=== PATIENT | male | born 1965 | race Native Hawaiian/Other Pacific Islander ===

== ENCOUNTER 2018-03-30 18:59 | Emergency (ER) | payer OTHER ==
[2018-03-30] MEDS ORDERED: Tdap Vaccine 0.5 ml Vial (10-64 yrs) IM ONE ×2 (20:24→21:19)
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
[2018-03-30] MEDS ORDERED: Hydrogen Peroxide 3% Soln (480ml) TP ONE (21:18)
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
[2018-03-30] MEDS ORDERED: Lidocaine 1% w Epi 1:100,000 Inj ONE (21:45)
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
[2018-03-30 22:29] LABS: BASO % 0.4 % (0.0-2.0); EOS # 0.1 K/uL (0.0-0.7); EOS % 0.5 % (0.0-4.0); HEMOGLOBIN 13.8 g/dL (12.0-18.0); LYMPH # 1.9 K/uL (1.0-4.3); LYMPH % 17.8 % (20.0-40.0); MEAN CELL VOLUME 84.1 fl (80.0-94.0); MEAN CORPUSCULAR HEMOGLOBIN 27.2 pg (27.0-31.0); MEAN CORPUSCULAR HGB CONC 32.3 g/dL (33.0-37.0); MEAN PLATELET VOLUME 8.7 fl (7.2-11.7); MONO # 0.5 K/uL (0.0-0.8); MONO % 4.6 % (0.0-10.0); NEUT % 76.7 % (50.0-75.0); NRBC % 0.1 % (0.0-0.0); RBC 5.09 Mil/uL (4.40-5.90); RED CELL DISTRIBUTION WIDTH 16.3 % (11.5-14.5); WHITE BLOOD COUNT 10.5 K/uL (4.8-10.8)
[2018-03-30 22:34] LABS: ALB/GLOB RATIO 1.2 (1.0-2.1); ALBUMIN 4.2 g/dL (3.5-5.0); CALCIUM 9.1 mg/dL (8.4-10.2); GFR AFRICAN-AMERICAN > 60; GFR NON-AFRICAN AMERICAN > 60
[2018-03-30 22:36] LABS: PROTHROMBIN TIME 9.4 Seconds (9.8-13.1)
[2018-03-30 22:37] LABS: INR 0.9 (0.9-1.2); PARTIAL THROMBOPLASTIN TIME 36.4 Seconds (25.6-37.1)
[2018-03-30] MEDS ORDERED: ceFAZolin 1 GM in Sodium Chloride 0.9% 100 ML IV STA (22:45)
[2018-03-30 22:49] LABS: ALT/SGPT 66 U/L (21-72); AST/SGOT 57 U/L (17-59); BLOOD UREA NITROGEN 15 mg/dl (9-20)
[2018-03-30 22:55] VITALS: BP 120/78; PULSE 84; TEMP 98.2
[2018-03-31] VITALS: RESP 18; O2SAT 97
--- NOTE | 2018-03-31 09:08 | RAD ---
PROCEDURE: Right Hand Radiographs. HISTORY: fall COMPARISON: None. FINDINGS: BONES: No acute fracture or destructive bony lesion identified. JOINTS: No subluxation or dislocation appreciable. SOFT TISSUES: Normal. OTHER FINDINGS: None. IMPRESSION: Unremarkable Right hand radiographs.
== END 2018-03-30 23:45 | disposition short-term general hospital (02) ==
LOC: H.ER 18:59
DX: S02.609A Fracture of mandible, unspecified, initial encounter for closed fracture (principal); M25.512 Pain in left shoulder; S01.81XA Laceration without foreign body of other part of head, initial encounter; S60.519A Abrasion of unspecified hand, initial encounter; V18.0XXA Pedal cycle driver injured in noncollision transport accident in nontraffic accident, initial encounter; Y93.55 Activity, bike riding
CPT/HCPCS: 12001; 70450; 70486; 73000; 73030; 73130; 80053; 85025; 85610; 85730; 90471; 90715; 96374; 96375; 96376; 99283; J0690; J2270

== ENCOUNTER 2018-05-27 19:33 | Observation (INO) | payer OTHER ==
[2018-05-27] MEDS ORDERED: Dexamethasone 10 MG in Sodium Chloride 0.9% 50 ML IV ONE (19:58)
[2018-05-27] MEDS ORDERED: Clindamycin 600mg/50ml D5W 600 MG/50 ML VIAL IVPB STA (19:58)
[2018-05-27] MEDS ORDERED: Iohexol 300 100 ML IJ ONE (20:06)
[2018-05-27] MEDS ORDERED: Sodium Chloride 0.9% 50 ML IV ONE (20:06)
[2018-05-27] MEDS ORDERED: Sodium Chloride 0.9% 1,000 ML IV STA (20:07)
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
[2018-05-27 20:53] LABS: BASO # 0.1 K/uL (0.0-0.2); BASO % 0.4 % (0.0-2.0); EOS # 0.1 K/uL (0.0-0.7); EOS % 0.6 % (0.0-4.0); HEMOGLOBIN 13.6 g/dL (12.0-18.0); LYMPH # 2.6 K/uL (1.0-4.3); LYMPH % 18.6 % (20.0-40.0); MEAN CORPUSCULAR HEMOGLOBIN 26.5 pg (27.0-31.0); MEAN CORPUSCULAR HGB CONC 32.3 g/dL (33.0-37.0); MONO # 0.7 K/uL (0.0-0.8); MONO % 5.3 % (0.0-10.0); NEUT # 10.4 K/uL (1.8-7.0); NEUT % 75.1 % (50.0-75.0); RBC 5.15 Mil/uL (4.40-5.90); WHITE BLOOD COUNT 13.9 K/uL (4.8-10.8)
[2018-05-27 21:06] LABS: ALB/GLOB RATIO 1.2 (1.0-2.1); ALBUMIN 4.2 g/dL (3.5-5.0); ALT/SGPT 41 U/L (21-72); AST/SGOT 32 U/L (17-59); BLOOD UREA NITROGEN 16 mg/dl (9-20); CALCIUM 9.2 mg/dL (8.4-10.2); GFR NON-AFRICAN AMERICAN > 60
[2018-05-27 21:08] LABS: VENOUS BLOOD GAS BASE EXCESS 2.9 mmol/L (0.0-2.0); VENOUS BLOOD GAS PCO2 49 mmHg (40-60); VENOUS BLOOD GAS PO2 28 mm/Hg (30-55); VENOUS BLOOD PH 7.38 (7.32-7.43)
[2018-05-27] MEDS ORDERED: Morphine 4 MG/ML VIAL ONE (21:50)
[2018-05-27] MEDS ORDERED: Benzocaine/Butamben/Tetracai 14-2-2% TOP Spray TOP ONE (21:54)
[2018-05-27] MEDS ORDERED: Lidocaine 1% w Epi 1:100,000 Inj ONE (22:11)
[2018-05-27] MEDS ORDERED: Lidocaine/Epi 1% 1:100000 20 ML IJ ONE (23:56)
[2018-05-28] MEDS ORDERED: Morphine 4 MG/ML VIAL IVP PRN (01:11)
[2018-05-28] MEDS ORDERED: Morphine 4 MG/ML VIAL ONE (01:53)
[2018-05-28] MEDS ORDERED: Clindamycin in NS 300 MG/50 ML BAG IVPB SCH (04:00)
[2018-05-28 06:36] LABS: HEMOGLOBIN 13.9 g/dL (12.0-18.0); MEAN CELL VOLUME 81.4 fl (80.0-94.0); MEAN CORPUSCULAR HEMOGLOBIN 26.3 pg (27.0-31.0); MEAN CORPUSCULAR HGB CONC 32.4 g/dL (33.0-37.0); RBC 5.29 Mil/uL (4.40-5.90); RED CELL DISTRIBUTION WIDTH 16.9 % (11.5-14.5); WHITE BLOOD COUNT 14.9 K/uL (4.8-10.8)
[2018-05-28 07:00] LABS: ALT/SGPT 34 U/L (21-72); AST/SGOT 25 U/L (17-59); BLOOD UREA NITROGEN 13 mg/dl (9-20); CALCIUM 9.1 mg/dL (8.4-10.2); GFR NON-AFRICAN AMERICAN > 60
[2018-05-28 07:02] LABS: ALBUMIN 4.1 g/dL (3.5-5.0)
[2018-05-28 07:34] LABS: ALB/GLOB RATIO 1.2 (1.0-2.1)
[2018-05-28] MEDS: Clindamycin in NS 300 MG/50 ML BAG IVPB SCH ×3 (08:46→20:55)
--- NOTE | 2018-05-28 09:37 | CT ---
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 TECHNIQUE: CT of the neck was performed following intravenous contrast administration from the skullbase to the aortic arch. Coronal and sagittal reformats generated. Intravenous contrast dose: Omnipaque 300, 80 cc Radiation dose: DLP 313.06 mGy-cm This CT exam was performed using one or more of the following dose reduction techniques: Automated exposure control, adjustment of the mA and/or kV according to patient size, and/or use of iterative reconstruction technique. FINDINGS: NASOPHARYNX: Majority nasopharynx unremarkable, however, the posterior soft palate appears edematous with thickening of the uvula at the inferior margins of the nasopharynx and upper portion of the oropharynx. Further, the tonsillar pillars are moderately enlarged with limited edema seen at the right side compatible with likely tonsillitis and pharyngitis. However, mild phlegmon is suspected at the right palatine tonsil. No fluid collections appreciate that would suggest definite abscess at this time. An early abscess is not completely excluded. The mid oral cavity is unremarkable with the anterior oral cavity obscured by artifact related to dental hardware. SUPRAHYOID NECK: The oropharynx is evaluated above with nasopharynx. The remainder the suprahyoid neck is otherwise unremarkable including the hypopharynx. INFRAHYOID NECK: Unremarkable larynx, hypopharynx, and supraglottic space. Vocal cords intact. GLANDS: Parotid and submandibular glands unremarkable. Normal size thyroid gland, without nodule. LYMPH NODES: Upper limits normal size jugular digastric lymph nodes. No significant infrahyoid lymphadenopathy. CERVICAL SPINE: No fracture or focal lesion. VASCULAR STRUCTURES: Conjoint origin left common carotid artery with brachiocephalic artery. OTHER FINDINGS: Nonacute, upper right mandibular ramus comminuted fracture with limited posterolateral displacement incidentally noted. Further, fibrotic changes appear somewhat nodule the left pulmonary apex with follow-up chest CT recommended electively if not already evaluated. Small gas collection is seen lateral to the esophagus, immediately proximal to the level of the thoracic inlet. IMPRESSION: Larger of the bilateral palatine tonsils is appreciated with prominent edema affecting the posterior margins of the soft palate and extending into the right palatine tonsil. No peripheral edema is associated with edematous findings. Phlegmon is felt to be present at the right palatine tonsil instead rather than definitive abscess, though an early abscess is not completely exclude. Borderline suprahyoid lymphadenopathy bilaterally. In a nonacute setting, the differential diagnosis would be neoplasm. Clinically correlate. Small gas collection is seen lateral to the esophagus above the thoracic inlet potentially reflecting a diverticulum or duplication cyst. Nonacute, comminuted right mandibular fracture. Please see separate facial CT 03/30/2018. Nodular left apical scarring incidentally noted which is indeterminate in appearance for follow-up CT of the chest is recommended if not already evaluated.
--- NOTE | 2018-05-28 11:26 | OP ---
PROCEDURE DATE: 05/27/2018 PREOPERATIVE DIAGNOSIS: Right tonsillar abscess. POSTOPERATIVE DIAGNOSIS: Right tonsillar abscess. PROCEDURE: Incision and drainage of right tonsillar abscess. SIGNIFICANT FINDINGS: Right tonsillar abscess. DESCRIPTION OF PROCEDURE: The patient was placed in seated position. The right side tonsillar area was injected with lidocaine with epinephrine. An incision was made in the area of the soft palate between the tonsil and the uvula using a #11 blade, clamped and dissection was done and pus was noted to be coming out. Clamp was used to break up any possible loculation. Bleeding was controlled with time. The patient tolerated the procedure well. Octavio Carpenter MD
[2018-05-28] MEDS ORDERED: Pneumococcal 23-Valent Vaccine IM ONE (11:47)
[2018-05-29] MEDS: Clindamycin in NS 300 MG/50 ML BAG IVPB SCH ×2 (01:40→09:01)
[2018-05-29 07:18] LABS: BASO % 0.2 % (0.0-2.0); EOS % 0.4 % (0.0-4.0); HEMOGLOBIN 13.4 g/dL (12.0-18.0); LYMPH # 2.2 K/uL (1.0-4.3); LYMPH % 20.3 % (20.0-40.0); MEAN CELL VOLUME 82.9 fl (80.0-94.0); MEAN CORPUSCULAR HEMOGLOBIN 26.1 pg (27.0-31.0); MEAN CORPUSCULAR HGB CONC 31.5 g/dL (33.0-37.0); MEAN PLATELET VOLUME 8.3 fl (7.2-11.7); MONO # 0.6 K/uL (0.0-0.8); MONO % 5.3 % (0.0-10.0); NEUT # 7.9 K/uL (1.8-7.0); NEUT % 73.8 % (50.0-75.0); RBC 5.12 Mil/uL (4.40-5.90); RED CELL DISTRIBUTION WIDTH 17.1 % (11.5-14.5); WHITE BLOOD COUNT 10.7 K/uL (4.8-10.8)
[2018-05-29 07:32] LABS: ALB/GLOB RATIO 1.1 (1.0-2.1); ALBUMIN 3.7 g/dL (3.5-5.0); ALT/SGPT 32 U/L (21-72); AST/SGOT 25 U/L (17-59); BLOOD UREA NITROGEN 14 mg/dl (9-20); CALCIUM 8.5 mg/dL (8.4-10.2); GFR NON-AFRICAN AMERICAN > 60
[2018-05-29 08:24] VITALS: BP 99/64; PULSE 80; RESP 18; TEMP 98; O2SAT 99
[2018-05-29 16:33] LABS: % CD4 (T HELPER CELL) 14 Percent (30-61); % CD8 (SUPPRESSOR T CELL) 26 Percent (12-42); ABSOLUTE CD4 CELLS 148 Cells/mcL (490-1740); ABSOLUTE CD8 CELLS 275 Cells/mcL (180-1170); ABSOLUTE LYMPHOCYTES 1075 Cells/mcL (850-3900); HELPER/SUPPRESSOR RATIO 0.54 Ratio (0.86-5.00)
--- NOTE | 2018-05-31 09:52 | CP.PCM.DIS ---
Provider - Provider Date of Admission: 05/27/18 23:49 Attending physician: Felicia Garcia MD Time Spent in preparation of Discharge (in minutes): 15 Diagnosis - Discharge Diagnosis (1) DVT prophylaxis Status: Acute (2) HIV (human immunodeficiency virus infection) Status: Acute (3) Peritonsillar abscess Status: Acute Hospital Course - Lab Results Lab Results: Micro Results 05/27/18 20:35 Throat Group A Strep Throat Culture - Final NO BETA STREP GROUP A ISOLATED. 05/27/18 20:26 Blood Blood Culture - Preliminary NO GROWTH AFTER 24 HOURS 05/27/18 08:30 Blood Blood Culture - Preliminary NO GROWTH AFTER 24 HOURS Most Recent Lab Values WBC 10.7 K/uL (4.8-10.8) 05/29/18 05:20 RBC 5.12 Mil/uL (4.40-5.90) 05/29/18 05:20 Hgb 13.4 g/dL (12.0-18.0) 05/29/18 05:20 Hct 42.4 % (35.0-51.0) 05/29/18 05:20 MCV 82.9 fl (80.0-94.0) 05/29/18 05:20 MCH 26.1 pg (27.0-31.0) L 05/29/18 05:20 MCHC 31.5 g/dL (33.0-37.0) L 05/29/18 05:20 RDW 17.1 % (11.5-14.5) H 05/29/18 05:20 Plt Count 212 K/uL (130-400) 05/29/18 05:20 MPV 8.3 fl (7.2-11.7) 05/29/18 05:20 Neut % (Auto) 73.8 % (50.0-75.0) 05/29/18 05:20 Lymph % (Auto) 20.3 % (20.0-40.0) 05/29/18 05:20 [place] % (Auto) 5.3 % (0.0-10.0) 05/29/18 05:20 Eos % (Auto) 0.4 % (0.0-4.0) 05/29/18 05:20 Baso % (Auto) 0.2 % (0.0-2.0) 05/29/18 05:20 Neut # (Auto) 7.9 K/uL (1.8-7.0) H 05/29/18 05:20 Lymph # (Auto) 2.2 K/uL (1.0-4.3) 05/29/18 05:20 [place] # (Auto) 0.6 K/uL (0.0-0.8) 05/29/18 05:20 Eos # (Auto) 0.0 K/uL (0.0-0.7) 05/29/18 05:20 Baso # (Auto) 0.0 K/uL (0.0-0.2) 05/29/18 05:20 pO2 28 mm/Hg (30-55) L 05/27/18 19:59 VBG pH 7.38 (7.32-7.43) 05/27/18 19:59 VBG pCO2 49 mmHg (40-60) 05/27/18 19:59 VBG HCO3 25.9 mmol/L 05/27/18 19:59 VBG Total CO2 30.5 mmol/L (22-28) H 05/27/18 19:59 VBG O2 Sat (Calc) 55.8 % (40-65) 05/27/18 19:59 VBG Base Excess 2.9 mmol/L (0.0-2.0) H 05/27/18 19:59 VBG Potassium 4.0 mmol/L (3.6-5.2) 05/27/18 19:59 Sodium 137.0 mmol/L (132-148) 05/27/18 19:59 Chloride 103.0 mmol/L (98-107) 05/27/18 19:59 Glucose 112 mg/dL (75-110) H 05/27/18 19:59 Lactate 1.0 mmol/L (0.7-2.1) 05/27/18 19:59 FiO2 21.0 % 05/27/18 19:59 Sodium 142 mmol/l (132-148) 05/29/18 05:20 Potassium 4.3 MMOL/L (3.6-5.0) 05/29/18 05:20 Chloride 108 mmol/L (98-107) H 05/29/18 05:20 Carbon Dioxide 23 mmol/L (22-30) 05/29/18 05:20 Anion Gap 15 (10-20) 05/29/18 05:20 BUN 14 mg/dl (9-20) 05/29/18 05:20 Creatinine 0.8 mg/dl (0.8-1.5) 05/29/18 05:20 Est GFR ( Amer) > 60 05/29/18 05:20 Est GFR (Non-Af Amer) > 60 05/29/18 05:20 Random Glucose 111 mg/dL (75-110) H 05/29/18 05:20 Calcium 8.5 mg/dL (8.4-10.2) 05/29/18 05:20 Total Bilirubin 0.4 mg/dl (0.2-1.3) 05/29/18 05:20 AST 25 U/L (17-59) 05/29/18 05:20 ALT 32 U/L (21-72) 05/29/18 05:20 Alkaline Phosphatase 64 U/L (38-126) 05/29/18 05:20 Total Protein 7.1 G/DL (6.3-8.2) 05/29/18 05:20 Albumin 3.7 g/dL (3.5-5.0) 05/29/18 05:20 Globulin 3.4 gm/dL (2.2-3.9) 05/29/18 05:20 Albumin/Globulin Ratio 1.1 (1.0-2.1) 05/29/18 05:20 Venous Blood Potassium 4.0 mmol/L (3.6-5.2) 05/27/18 19:59 Absolute Lymphs (Flow) 1075 Cells/mcL (850-3900) 05/27/18 20:35 % CD4 Cells 14 Percent (30-61) L 05/27/18 20:35 Absolute CD4 Count 148 Cells/mcL (490-1740) L 05/27/18 20:35 T-Help/Suppress Ratio 0.54 Ratio (0.86-5.00) L 05/27/18 20:35 % CD8 Cells 26 Percent (12-42) 05/27/18 20:35 Absolute CD8 Count 275 Cells/mcL (180-1170) 05/27/18 20:35 Grp A Beta Strep Ag Negative (NEGATIVE) 05/27/18 20:35 - Hospital Course Hospital Course: ent and i/d of stiff straw hat washer anbx and pain control Discharge Exam - Head Exam Head Exam: ATRAUMATIC, NORMAL INSPECTION, NORMOCEPHALIC - Eye Exam Eye Exam: EOMI, Normal appearance, PERRL Pupil Exam: NORMAL ACCOMODATION, PERRL - Respiratory Exam Respiratory Exam: Clear to PA & Lateral, NORMAL BREATHING PATTERN, UNREMARKABLE - Cardiovascular Exam Cardiovascular Exam: REGULAR RHYTHM, RRR, +S1, +S2 - GI/Abdominal Exam GI & Abdominal Exam: Normal Bowel Sounds, Soft, Unremarkable - Extremities Exam Extremities exam: full ROM, normal capillary refill, normal inspection, pedal pulses present - Neurological Exam Neurological exam: Alert, CN II-XII Intact, Normal Gait, Oriented x3, Reflexes Normal - Psychiatric Exam Psychiatric exam: Normal Affect, Normal Mood - Skin Skin Exam: Dry, Intact, Normal Color, Warm Discharge Plan - Follow Up Plan Condition: STABLE Disposition: HOME/ ROUTINE Instructions: Clindamycin (Systemic), How to Care for Your Mouth and Teeth, Abscess (GEN) Additional Instructions: F/U with [facility] on Thursday- 05/31 pt doing well no fcnvd. jonathan po and pain controlled final dx:Peritonsilar abscess, hiv meds per med rec, rtedprn, Referrals: Felicai Garcia MD [Staff Provider] -
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
== END 2018-05-29 14:27 | disposition home or self-care (01) ==
LOC: H.ER 19:33 → H.ERHOLD 23:49 → H.MEDSURG1 05-28 10:49
PROVIDERS: ADMIT Family Medicine; ATTEND Family Medicine
DX: J36 Peritonsillar abscess (principal); Z90.49 Acquired absence of other specified parts of digestive tract; F45.9 Somatoform disorder, unspecified; Z21 Asymptomatic human immunodeficiency virus [HIV] infection status; Z87.81 Personal history of (healed) traumatic fracture
CPT/HCPCS: 36415; 42700; 70491; 80053; 82803; 85025; 85027; 86360; 87040; 87070; 87430; 87536; 90471; 90732; 96365; 96374; 99285; G0378; J1100; J1885; J2270; J7030; Q9967